=== PATIENT | male | born 1965 ===

== ENCOUNTER 2017-04-29 11:14 | Emergency (ER) | payer MEDICAID ==
[2017-04-29 11:45] VITALS: BMI 26.6
[2017-04-29 11:46] VITALS: BP 148/79; PULSE 59; RESP 20; TEMP 98.6; O2SAT 98
--- NOTE | 2017-04-29 12:39 | ED PDOC ---
HPI: Back Time Seen by Provider: 04/29/17 12:03 Chief Complaint (Nursing): Back Pain Chief Complaint (Provider): back pain History Per: Patient History/Exam Limitations: no limitations Onset/Duration Of Symptoms: Days (x2 weeks) Current Symptoms Are (Timing): Still Present Additional Complaint(s): 51 year old male who presents to the emergency department with a complaint of left-sided lower back pain associated with right neck pain radiating into left side ongoing for 2 weeks. Denied any trauma, radiation of pain, chest pain, bilateral arm pain, abdominal pain, difficulty urinating, bloody urine, incontinence or saddle paresthesia. Patient reported back pain is worse with movement and has been taking Tylenol with no relief. PMD: Oscar Winters MD Past Medical History Reviewed: Historical Data, Nursing Documentation, Vital Signs Vital Signs: Last Vital Signs Temp 98.6 F 04/29/17 11:47 Pulse 59 L 04/29/17 11:47 Resp 20 04/29/17 11:47 BP 148/79 04/29/17 11:47 Pulse Ox 98 04/29/17 11:47 - Medical History PMH: No Chronic Diseases - Surgical History Surgical History: No Surg Hx - Family History Family History: States: Unknown Family Hx - Social History Current smoker - smoking cessation education provided: No Alcohol: None Drugs: Denies - Home Medications Home Medications: Ambulatory Orders Medication Instructions Recorded Cyclobenzaprine [Cyclobenzaprine 10 mg PO Q8 PRN #15 tab 04/29/17 HCl] Naproxen [Naprosyn] 500 mg PO BID PRN #10 tab 04/29/17 - Allergies Allergies/Adverse Reactions: Allergies Allergy/AdvReac Type Severity Reaction Status Date / Time No Known Allergies Allergy Verified 04/29/17 11:47 Review of Systems ROS Statement: Except As Marked, All Systems Reviewed And Found Negative Cardiovascular: Negative for: Chest Pain Gastrointestinal: Negative for: Abdominal Pain Genitourinary Male: Negative for: Dysuria, Incontinence, Hematuria Musculoskeletal: Positive for: Neck Pain (bilateral), Back Pain (lower left). Negative for: Arm Pain (bilateral), Other (saddle paresthesia) Physical Exam - Reviewed Nursing Documentation Reviewed: Yes Vital Signs Reviewed: Yes - Physical Exam Appears: Positive for: Non-toxic, In Acute Distress (mildly painful) Skin: Positive for: Normal Color, Warm, Dry. Negative for: Rash Neck: Positive for: Decreased ROM, Pain On Movement Of Neck (left-sided paracervical tenderness with muscle spasm). Negative for: Normal, Painless ROM Cardiovascular/Chest: Positive for: Regular Rate, Rhythm, Chest Non Tender Respiratory: Positive for: Normal Breath Sounds. Negative for: Decreased Breath Sounds, Respiratory Distress Back: Positive for: Other (left-sided paralumbar tenderness). Negative for: Normal Inspection, L CVA Tenderness, R CVA Tenderness, Vertebral Tenderness (or cervical tenderness in midline) Extremity: Positive for: Normal ROM (upper/lower). Negative for: Deformity ( upper/lower) Neurologic/Psych: Positive for: Alert (x3), Oriented - ECG O2 Sat by Pulse Oximetry: 98 (RA) Pulse Ox Interpretation: Normal - Radiology X-Ray: Read By Radiologist (C-spine, LS spine x-rays) X-Ray Interpretation: Other (degenerative changes; no acute fx) Medical Decision Making Medical Decision Making: Initial Impression: Neck pain; Back pain Initial Plan: * Toradol 60mg IM * Xray cervical spine * Xray LS spine Time: 1258 --Xray Lumbar FINDINGS: BONES: Normal alignment. No listhesis. No fracture. DISC SPACES: L5-S1 disc space narrowing. OTHER FINDINGS: None. IMPRESSION: No acute fracture. Focal L5-S1 degenerative changes. --Xray Cervical FINDINGS: BONES: Alignment maintained. No fracture. Mild anterior osteophytic changes. Dens Intact. DISC SPACES: Multilevel disc space narrowing. SOFT TISSUES: Normal. No prevertebral soft tissue swelling. OTHER FINDINGS: None. IMPRESSION: No acute fracture. Mild multilevel degenerative changes. Time: 1319 --Upon provider reevaluation, patient is medically stable and requires no further treatment in the ED at this time. Patient will be discharged home with Rx for Cyclobenzaprine HCL 10mg and Naprosyn 500mg. Counseling was provided and all questions were answered regarding diagnosis and need for follow up with PMD. There is agreement to discharge plan. Return if symptoms persist or worsen. Clinical Impression: Neck pain; Back pain Scribe Attestation: Documented by Valentine Gomez, acting as a scribe for Baron Gupta PA-C. Provider Scribe Attestation: All medical record entries made by the Scribe were at my direction and personally dictated by me. I have reviewed the chart and agree that the record accurately reflects my personal performance of the history, physical exam, medical decision making, and the department course for this patient. I have also personally directed, reviewed, and agree with the discharge instructions and disposition. Disposition - Clinical Impression Clinical Impression: Neck pain, Back pain - Patient ED Disposition Is Patient to be Admitted: No Counseled Patient/Family Regarding: Studies Performed, Diagnosis - Disposition Referrals: [facility] [Outside] Disposition: Routine/Home Disposition Time: 13:19 Condition: STABLE Prescriptions: Cyclobenzaprine [Cyclobenzaprine HCl] 10 mg PO Q8 PRN #15 tab PRN Reason: Muscle Spasm Naproxen [Naprosyn] 500 mg PO BID PRN #10 tab PRN Reason: Pain Instructions: Back Pain (ED) Forms: [email or web address] (Spanish)
--- NOTE | 2017-04-29 13:00 | RAD ---
PROCEDURE: Cervical Spine Radiographs. HISTORY: Pain. COMPARISON: None. FINDINGS: BONES: Alignment maintained. No fracture. Mild anterior osteophytic changes. Dens Intact. DISC SPACES: Multilevel disc space narrowing. SOFT TISSUES: Normal. No prevertebral soft tissue swelling. OTHER FINDINGS: None. IMPRESSION: No acute fracture. Mild multilevel degenerative changes.
--- NOTE | 2017-04-29 13:00 | RAD ---
PROCEDURE: Radiographs of the Lumbar Spine. HISTORY: pain COMPARISON: No prior. FINDINGS: BONES: Normal alignment. No listhesis. No fracture. DISC SPACES: L5-S1 disc space narrowing. OTHER FINDINGS: None. IMPRESSION: No acute fracture. Focal L5-S1 degenerative changes.
== END 2017-04-29 13:42 | disposition home or self-care (01) ==
LOC: H.ER 11:14
DX: M54.9 Dorsalgia, unspecified (principal); M54.2 Cervicalgia
CPT/HCPCS: 72040; 72100; 96372; 99282; J1885

== ENCOUNTER 2017-07-24 14:33 | Emergency (ER) | payer MEDICAID ==
[2017-07-24 14:33] VITALS: BMI 26.6
[2017-07-24 14:59] VITALS: BP 141/77; PULSE 57; RESP 18; TEMP 98.8; O2SAT 100
--- NOTE | 2017-07-24 15:51 | ED PDOC ---
HPI: Back Time Seen by Provider: 07/24/17 15:05 Chief Complaint (Nursing): Back Pain Chief Complaint (Provider): Back Pain History Per: Patient History/Exam Limitations: no limitations Onset/Duration Of Symptoms: Days (x 5 years ) Current Symptoms Are (Timing): Still Present Quality Of Discomfort: "Pain" Previous Symptoms: Back Pain Additional Complaint(s): 51 year old male with a history of chronic back pain presents to the ED complaining of back pain for the last five years. Pain is located at the left lumbar area occasionally associated with left leg numbness especially in his toes. Patient reports he started treatment for pain in April after being seen at this ED and then the [facility]. He was given physical therapy instructions and started on Gabapentin. Patient has also been taking Tylenol and Motrin with no relief. Yesterday, the pain was severe and it is rendering him incapable to work. Patient also reports that he initially went [place] where he was diagnosed with herniated discs of the lumbar spine. Denies bowel or urine incontinence or retention, fever and weight loss. PMD: [facility] Past Medical History Reviewed: Historical Data, Nursing Documentation, Vital Signs Vital Signs: Last Vital Signs Temp 98.8 F 07/24/17 14:57 Pulse 57 L 07/24/17 14:57 Resp 18 07/24/17 14:57 BP 141/77 07/24/17 14:57 Pulse Ox 100 07/24/17 14:57 - Medical History PMH: Back Problems - Surgical History Surgical History: No Surg Hx - Family History Family History: States: Unknown Family Hx - Social History Current smoker - smoking cessation education provided: No Ex-Smoker (has not smoked in the last 12 months): No Alcohol: Social Drugs: Denies - Immunization History Hx Tetanus Toxoid Vaccination: No Hx Influenza Vaccination: No Hx Pneumococcal Vaccination: No - Home Medications Home Medications: Ambulatory Orders Medication Instructions Recorded Cyclobenzaprine [Cyclobenzaprine 10 mg PO Q8 PRN #15 tab 04/29/17 HCl] Naproxen [Naprosyn] 500 mg PO BID PRN #10 tab 04/29/17 Cyclobenzaprine [Flexeril] 5 mg PO Q8 PRN #15 tab 07/24/17 Lidocaine 5% [Lidoderm] 1 ea TD DAILY PRN #15 patch 07/24/17 Naproxen [Naprosyn] 1 tab PO BID PRN #60 tab 07/24/17 - Allergies Allergies/Adverse Reactions: Allergies Allergy/AdvReac Type Severity Reaction Status Date / Time No Known Allergies Allergy Verified 07/24/17 14:57 Review of Systems ROS Statement: Except As Marked, All Systems Reviewed And Found Negative Musculoskeletal: Positive for: Back Pain (left lumbar area) Physical Exam - Reviewed Nursing Documentation Reviewed: Yes Vital Signs Reviewed: Yes - Physical Exam Appears: Positive for: Non-toxic, In Acute Distress (mild painful) Head Exam: Positive for: ATRAUMATIC, NORMOCEPHALIC Skin: Positive for: Warm, Dry Eye Exam: Positive for: EOMI, Normal appearance, PERRL Neck: Positive for: Normal, Painless ROM, Supple Gastrointestinal/Abdominal: Positive for: Normal Exam, Soft. Negative for: Tenderness, Mass (pulsatile), Distended Back: Positive for: Other (tenderness to left lumbar paraspinal area). Negative for: Vertebral Tenderness (and midline ) Extremity: Positive for: Other (negative straight leg raise test; light touch intact in bilateral lower extremities; 5/5 strength with plantar and dorsal flexion and EHL). Negative for: Tenderness (to palpation at SI joint) Neurologic/Psych: Positive for: Alert, Oriented (x 3), Motor/Sensory Deficits - ECG O2 Sat by Pulse Oximetry: 100 (RA) Pulse Ox Interpretation: Normal Medical Decision Making Medical Decision Making: Time: 15:05 Impression: acute on chronic back pain Initial Plan: --Flexeril 10 mg PO --Lidoderm 1 ea TD --Toradol 30 mg IM --Tylenol 975 mg PO 1700 Pt improved. DW pt plan of care. Scribe Attestation: Documented by Venus Niño, acting as a scribe for Courtney Ann MD Provider Scribe Attestation: All medical record entries made by the Scribe were at my direction and personally dictated by me. I have reviewed the chart and agree that the record accurately reflects my personal performance of the history, physical exam, medical decision making, and the department course for this patient. I have also personally directed, reviewed, and agree with the discharge instructions and disposition. Disposition - Clinical Impression Clinical Impression: Chronic back pain - Disposition Referrals: [facility] [Outside] - 07/25/17 (VISITA A LA CLINICA ESTA SEMANA POR MAS EVALUACIONES Y TRATIMIENTE.) Disposition: Routine/Home Disposition Time: 17:30 Condition: IMPROVED Prescriptions: Cyclobenzaprine [Flexeril] 5 mg PO Q8 PRN #15 tab PRN Reason: muscle spasm Lidocaine 5% [Lidoderm] 1 ea TD DAILY PRN #15 patch PRN Reason: PAIN Naproxen [Naprosyn] 1 tab PO BID PRN #60 tab PRN Reason: Pain Instructions: Low Back Pain (DC) Forms: [facility] ED School/Work Excuse Print Language: UKRAINIAN
[2017-07-24] MEDS ORDERED: Lidocaine 5% Patch TD STA (15:54)
[2017-07-24] MEDS ORDERED: Lidocaine 5% Patch TD ONE (16:09)
== END 2017-07-24 18:00 | disposition home or self-care (01) ==
LOC: H.ER 14:33
DX: M54.5 Low back pain (principal); G89.29 Other chronic pain
CPT/HCPCS: 96372; 99282; J1885

== ENCOUNTER 2017-10-21 08:45 | Day surgery (SDC) | payer MEDICAID ==
[2017-10-18 10:25] VITALS: BMI 26.3
[2017-10-21 09:56] VITALS: RESP 18
[2017-10-21] MEDS ORDERED: methylPREDNISolone Depo 80 mg/ml Inj ONE (10:50)
[2017-10-21] MEDS ORDERED: Iohexol 300 10 ML ONE (10:50)
[2017-10-21] MEDS ORDERED: Lidocaine Hydrochloride 5 ML INJ ONE (10:51)
[2017-10-21] MEDS ORDERED: Bupivacaine HCl 0.25% PF (30 ml) Inj ONE (10:51)
[2017-10-21] MEDS ORDERED: Midazolam 2 MG/2 ML VIAL ONE (10:53)
[2017-10-21] MEDS ORDERED: Propofol 10 mg/ml Inj (20 ML) ONE (10:53)
[2017-10-21] MEDS ORDERED: Lactated Ringer's 1,000 ML IV ONE (10:55)
[2017-10-21] MEDS ORDERED: methylPREDNISolone Depo 80 mg/ml Inj IM ONE (11:00)
[2017-10-21] MEDS ORDERED: Lidocaine 1% (50 ml) Vial IV ONE (11:00)
[2017-10-21] MEDS ORDERED: Iohexol 300 10 ML IJ ONE (11:00)
[2017-10-21] MEDS ORDERED: Bupivacaine HCl 0.25% PF (30 ml) Inj IJ ONE (11:00)
[2017-10-21] MEDS ORDERED: Lactated Ringer's 1,000 ML IV SCH (11:30)
[2017-10-21 14:08] VITALS: BP 122/70; PULSE 55; TEMP 98.4; O2SAT 97
--- NOTE | 2017-10-21 16:23 | RAD ---
Date of service: 10/21/2017 PROCEDURE: Fluoroscopy up to 1 hr. HISTORY: PAIN MANAGEMENT COMPARISON: None TECHNIQUE: Standard protocol for this study/examination. FINDINGS: Total fluoroscopic time (continuous mode) utilized during the procedure 24.0 (seconds). Total exam DLP: 4.82 (mGy) IMPRESSION: Less than 1 hr fluoroscopic time utilized during performance of the procedure.
--- NOTE | 2017-10-21 18:43 | OP ---
Copied To: William Cash MD Attending MD: William Cash MD PROCEDURE DATE: 10/21/2017 PREOPERATIVE DIAGNOSIS: Bilateral sacroiliac joint dysfunction. POSTOPERATIVE DIAGNOSIS: Bilateral sacroiliac joint dysfunction. PROCEDURE: Bilateral sacroiliac joint steroid injection. ANESTHESIOLOGIST: Geneva De Oliveira MD SURGEON: William Cash MD TYPE OF ANESTHESIA: Monitored anesthesia care. COMPLICATIONS: None. SPECIMEN: None. DESCRIPTION OF PROCEDURE: As follows: After we had discussion of the procedure with the patient including its risks, benefits, alternatives, outcome data, and possibility of no effect or increased pain, patient consented to the procedure. He denies any recent infection, bleeding tendencies, or being on anticoagulants; a decision was then made to proceed to the OR. Patient was placed on a fluoroscopy table in a prone position with two pillows underneath his abdomen. The back was prepped and draped in the usual sterile fashion. A sterile technique was adhered to during the entire procedure. The procedure was first performed on the right. The target is the posterior opening at the inferior pole of the right sacroiliac joint. The skin overlying this area was then infiltrated with 1% lidocaine using 25-gauge needle. Subsequently, a 22-gauge 3-1/2-inch spinal needle was then incrementally advanced under fluoroscopic guidance until the tip of the needle walked into the joint capsule. This was confirmed by injecting approximately 0.5 mL of Isovue contrast. After appropriate placement of the needle, approximately 5 mL of 0.5% Marcaine and Depo-Medrol mixture was injected. The needle was then removed and same exact procedure was performed on the contralateral left side using the same medications and techniques. At the end of the case, the patient's back was cleaned, and dry bandages were applied. Patient was then transferred to the recovery area in good condition without any signs of DIRECTOR OF PROCUREMENT toxicity or any neurological deficit. He will be following in our office in approximately two to four weeks. William Cash MD
== END 2017-10-21 13:55 | disposition home or self-care (01) ==
LOC: H.OPSURG 08:45
PROVIDERS: ATTEND Anesthesiology
DX: M51.36 Other intervertebral disc degeneration, lumbar region (principal); M43.06 Spondylolysis, lumbar region; M46.1 Sacroiliitis, not elsewhere classified
CPT/HCPCS: 27096; 76000; J1040; J2250; J2704; J3010; J7120; Q9967

== ENCOUNTER 2017-12-16 08:51 | Day surgery (SDC) | payer MEDICAID ==
[2017-12-16] MEDS ORDERED: Lactated Ringer's 1,000 ML IV ONE (09:55)
[2017-12-16 10:09] VITALS: BMI 26.3
[2017-12-16 10:17] VITALS: RESP 18
[2017-12-16] MEDS ORDERED: MethylPREDNISolone Depo 40 mg/ml Inj ONE (10:51)
[2017-12-16] MEDS ORDERED: Bupivacaine HCl 0.25% PF (10 ml) Inj IJ ONE (10:55)
[2017-12-16] MEDS ORDERED: methylPREDNISolone Depo 80 mg/ml Inj IM ONE (10:55)
[2017-12-16] MEDS ORDERED: Lidocaine 2% MPF (5 ml) Inj INJ ONE (10:55)
[2017-12-16 12:35] VITALS: BP 142/84; PULSE 50; TEMP 98.2; O2SAT 100
--- NOTE | 2017-12-16 21:59 | OP ---
PROCEDURE DATE: 12/16/2017 PREOPERATIVE DIAGNOSIS: Lumbar spondylosis. POSTOPERATIVE DIAGNOSIS: Lumbar spondylosis. PROCEDURE: Bilateral L3, L4 and L5 medial branch nerve block. SURGEON: William Cash MD ANESTHESIOLOGIST: Dr. Crenshaw. TYPE OF ANESTHESIA: Monitored anesthesia care. COMPLICATIONS: None. SPECIMENS: None. DESCRIPTION OF PROCEDURE: After we had a discussion of the procedure with the patient including its risks, benefits, alternatives, outcome data, possibility of no effect or increased pain, the patient consented to the procedure. He denies any recent infection, bleeding tendencies or being on anticoagulants. A decision was then made to proceed to the OR. The patient was placed on the fluoroscopy table in a prone position with two pillows underneath his abdomen. The back was prepped and draped in the usual sterile fashion. A sterile technique was adhered during the entire procedure. The L3, L4 and L5 medial branch nerves were located at the intersection of the superior articular process and the transverse process of the L4 and L5 pedicle along with the sacral ala. The procedure was first performed on the right by turning the fluoroscopy towards the right at approximately 15 degrees. The skin overlying the three above targeted areas was then infiltrated with 1 % lidocaine using 25-gauge needle. Subsequently, a 22-gauge 3.5 inch spinal needle was then incrementally advanced under fluoroscopic guidance until the tip of needle made bony contact with all three targeted areas. After satisfactory positioning of all three needles, approximately 3 mL of 0.25% Marcaine and Depo-Medrol mixture was injected. The needle was then removed. The same exact procedure was performed on the contralateral left side using the same medications and techniques. At the end of the case, the patient's back was cleaned and dried, bandages were applied. The patient was then transferred to the recovery area in good condition without any signs of BLASTING WORKER toxicity or any neurological deficits. He will be followed up in our office in approximately two to four weeks. William Cash MD
--- NOTE | 2017-12-18 12:13 | RAD ---
Date of service: 12/16/2017 PROCEDURE: Intraoperative Fluoroscopy. HISTORY: PAIN MANAGEMENT FINDINGS: Fluoroscopic assistance was provided for lumbar epidural steroid injection. Please refer to the operative report from AMPAR[facility] Corrales. Total fluoroscopic time (continuous mode) utilized during the procedure 17.1 (seconds). Total exam DLP: 4.22 (mGy).
== END 2017-12-16 13:05 | disposition home or self-care (01) ==
LOC: H.OPSURG 08:51
PROVIDERS: ATTEND Anesthesiology
DX: M47.816 Spondylosis without myelopathy or radiculopathy, lumbar region (principal); M19.90 Unspecified osteoarthritis, unspecified site
CPT/HCPCS: 64493; 64494; J1030; J1040; J7120

== ENCOUNTER 2018-03-08 09:40 | Day surgery (SDC) | payer MEDICAID ==
[2018-03-08] MEDS ORDERED: Lactated Ringer's 1,000 ML IV ONE (10:11)
[2018-03-08 10:14] VITALS: BMI 27.3
[2018-03-08 10:15] VITALS: RESP 18
[2018-03-08] MEDS ORDERED: Lidocaine 1% Inj (20ml) INFIL ONE (12:15)
[2018-03-08] MEDS ORDERED: Bupivacaine 0.25% Inj(30mL) IJ ONE (12:15)
[2018-03-08] MEDS ORDERED: Iohexol 300 10 ML IJ ONE (12:15)
[2018-03-08] MEDS ORDERED: methylPREDNISolone Depo 80 mg/ml Inj IM ONE (12:15)
[2018-03-08] MEDS ORDERED: HYDROmorphone 0.5 mg/0.5 ml ISec IVP PRN (12:34)
[2018-03-08 14:03] VITALS: O2SAT 98
--- NOTE | 2018-03-08 14:40 | RAD ---
Date of service: 03/08/2018 PROCEDURE: Intraoperative Fluoroscopy. HISTORY: EPIDURAL FINDINGS: Fluoroscopic assistance was provided.. Fluoroscopy time = 24.8 sec. Radiation dose = 6.32 mGy. . Please refer to the operative report from AMPAR[facility] Corrales.
[2018-03-08 15:14] VITALS: BP 126/77; PULSE 72; TEMP 98.6
--- NOTE | 2018-03-08 22:01 | OP ---
PROCEDURE DATE: 03/08/2018 PREOPERATIVE DIAGNOSIS: Lumbar radiculopathy. POSTOPERATIVE DIAGNOSIS: Lumbar radiculopathy. PROCEDURE: Left L4-L5 and L5-S1 transforaminal epidural steroid injection. SURGEON: William Cash MD TYPE OF ANESTHESIA: Monitored anesthesia care. ANESTHESIOLOGIST: Dr. Reeves. COMPLICATIONS: None. SPECIMEN: None. DESCRIPTION OF PROCEDURE: The procedure is as follows: After we had a discussion of the procedure with the patient including its risks, benefits, alternatives, outcome data, possibility of no effect or increased pain, the patient consented to the procedure. He denied any recent infection, bleeding tendencies, or being on anticoagulants. A decision was then made to proceed to the OR. The patient was placed on a fluoroscopy table in a prone position with two pillows underneath his abdomen. The back was prepped and draped in a usual sterile fashion. A sterile technique was adhered to during the entire procedure. The L4 and L5 vertebral levels were first identified in the anteroposterior view. Angulation towards the left at approximately 20 degrees was used to maximize the visualization of the left L4 and L5 pedicles. The skin overlying the 6 o'clock position of both pedicles was then infiltrated with 1% lidocaine using a 25-gauge needle. Subsequently, a 22-gauge 3.5-inch spinal needle was incrementally advanced under fluoroscopic guidance until the tip of the needle reaches the intervertebral foramen. This was confirmed on the anteroposterior view and lateral views. After satisfactory positioning of both needles, approximately 0.5 mL of Isovue contrast was injected showing appropriate epidural spread. At this point, approximately 3 mL of 0.25% Marcaine and Depo-Medrol mixture was injected. The needle was then removed. The patient denied paresthesia during the injection. The patient's back was then cleaned and a dry bandage was applied. The patient was then transferred to the recovery area in good condition without any signs of ELECTRIC RANGE PREPARER toxicity or any neurological deficit. He will be following up in the office in approximately two to four weeks. William Cash MD
== END 2018-03-08 15:15 | disposition home or self-care (01) ==
LOC: H.OPSURG 09:40
PROVIDERS: ATTEND Anesthesiology
DX: M54.16 Radiculopathy, lumbar region (principal)
CPT/HCPCS: 64483; 64484; J1030; J1040; J7120; Q9967

== ENCOUNTER 2018-04-28 09:44 | Day surgery (SDC) | payer MEDICAID ==
[2018-04-25 16:27] VITALS: BMI 26.3
[2018-04-28 10:14] VITALS: RESP 18
--- NOTE | 2018-04-28 10:24 | CP.SDSHP ---
Same Day Surgery H & P - History Proposed Procedure: Bilateral lumbar transforaminal epidural steroid injection Pre-Op Diagnosis: Failed back syndrome - Allergies Allergies: Allergies No Known Allergies Allergy (Verified 03/08/18 09:55) - Physical Exam Vital Signs: Vital Signs 04/28/18 04/28/18 10:12 10:16 Temperature 98.7 F Pulse Rate 69 60 Respiratory 18 Rate Blood Pressure 145/78 O2 Sat by Pulse 97 Oximetry Neuro: WNL Heart: WNL Lungs: WNL - Impression Impression: Lumbar radiculopathy Pt. Evaluated Today:Candidate for Anesthesia & Procedure: Yes Short Stay Discharge - Short Stay Discharge Admitting Diagnosis/Reason for Visit: M54.42 Disposition: HOME/ ROUTINE Referrals: August Rosas MD [Primary Care Provider] -
[2018-04-28] MEDS ORDERED: Lactated Ringer's 1,000 ML IV ONE (10:29)
[2018-04-28] MEDS ORDERED: MethylPREDNISolone Depo 40 mg/ml Inj ONE (10:52)
[2018-04-28] MEDS ORDERED: Iohexol 300 10 ML ONE (10:53)
[2018-04-28] MEDS ORDERED: Bupivacaine HCl 0.25% PF (30 ml) Inj ONE (10:53)
[2018-04-28] MEDS ORDERED: Bupivacaine HCl 0.5% PF (30 ml) Inj ONE (10:54)
[2018-04-28] MEDS ORDERED: Midazolam 2 MG/2 ML VIAL ONE (11:01)
[2018-04-28] MEDS ORDERED: Lidocaine 1% Inj (20ml) IJ ONE (11:04)
[2018-04-28 14:35] VITALS: BP 123/74; PULSE 59; TEMP 97.4; O2SAT 99
--- NOTE | 2018-04-28 19:57 | OP ---
PROCEDURE DATE: 04/28/2018 PREOPERATIVE DIAGNOSIS: Lumbar radiculopathy. POSTOPERATIVE DIAGNOSIS: Lumbar radiculopathy. PROCEDURE: Bilateral L5-S1 transforaminal epidural steroid injection. SURGEON: William Cash MD TYPE OF ANESTHESIA: Monitored anesthesia care. ANESTHESIOLOGIST: Nigel Tracy MD. COMPLICATIONS: None. SPECIMEN: None. DESCRIPTION OF PROCEDURE: Procedure is as follows: After we had discussion of the procedure with the patient including its risks, benefits, alternatives, outcome data, possibility of no effect or increased pain, the patient consented to the procedure. She denied any recent infection, bleeding tendencies, or being on anticoagulants. The decision was then made to proceed to the OR. The patient was placed on a fluoroscopy table in a prone position with two pillows underneath her abdomen. The back was prepped and draped in a usual sterile fashion and sterile technique was adhered to during the entire procedure. The L5 vertebral levels were first identified in the anteroposterior view. The procedure was first performed on the right side by turning the fluoroscopy towards the right at approximately 20 degrees. The skin overlying the 6 o'clock position of both pedicles was then infiltrated with 1% lidocaine using 25-gauge needle. Subsequently, a 22-gauge 3.5-inch spinal needle was incrementally advanced under fluoroscopic guidance until tip of the needle walked into the intervertebral foramen. After satisfactory positioning of the needle, approximately 0.5 mL of Isovue contrast was injected showing appropriate epidural nerve root spread without any signs of CSF or intravenous involvement. At this point, approximately 3 mL of 0.25% Marcaine and Depo-Medrol mixture was injected. The needle was then removed and the same exact procedure was performed on the contralateral left side using the same medications and technique. At the end of the case, the patient's back was cleaned and dry bandages were applied. The patient was then transferred to the recovery area in good condition without any signs of BUDDER toxicity or any neurological deficit. She will be following up in the office in approximately two to four weeks. William Cash MD
--- NOTE | 2018-05-02 15:16 | RAD ---
Date of service: 04/28/2018 PROCEDURE: Fluoroscopy up to 1 hr. Lumbar epidural steroid injection HISTORY: OR Pain management COMPARISON: None TECHNIQUE: Standard protocol for this study/examination. FINDINGS: Total fluoroscopic time (continuous mode) utilized during the procedure 21.0 seconds. Total exam DLP: 4.29 (mGy). Submitted images from the current procedure: 1.0 IMPRESSION: Less than 1 hr fluoroscopic assistance provided during performance of the procedure.
== END 2018-04-28 14:36 | disposition home or self-care (01) ==
LOC: H.OPSURG 09:44
PROVIDERS: ATTEND Anesthesiology
DX: M54.16 Radiculopathy, lumbar region (principal); M19.90 Unspecified osteoarthritis, unspecified site
CPT/HCPCS: 64483; J1030; J2250; J3010; J7120; Q9967